=== PATIENT | female | born 1995 | race Hispanic/Latino ===

== ENCOUNTER 2017-08-15 20:52 | Emergency (ER) | payer OTHER ==
--- NOTE | 2017-08-15 23:52 | Emergency Department Report ---
ED General Adult HPI - General Chief complaint: Urogenital-Female Stated complaint: FEVER Time Seen by Provider: 08/15/17 23:51 Source: patient Mode of arrival: Ambulatory Limitations: No Limitations - Related Data Previous Rx's Medication Instructions Recorded Last Taken Type Ranitidine HCl [Zantac 300 MG TAB] 300 mg PO QPM #20 tablet 10/04/16 Unknown Rx Allergies Allergy/AdvReac Type Severity Reaction Status Date / Time No Known Allergies Allergy Verified 08/15/17 21:39 ED Review of Systems ROS: Stated complaint: FEVER Other details as noted in HPI ED Past Medical Hx - Past Medical History Previous Medical History?: No Additional medical history: Vaginal delivery 11-12-2015 - Surgical History Past Surgical History?: No - Social History Smoking Status: Never Smoker Substance Use Type: Alcohol - Medications Home Medications: Home Medications Medication Instructions Recorded Confirmed Last Taken Type Ranitidine HCl [Zantac 300 MG TAB] 300 mg PO QPM #20 tablet 10/04/16 Unknown Rx ED Physical Exam - General Limitations: No Limitations ED Course Vital Signs 08/15/17 21:39 Temperature 98.3 F Pulse Rate 82 Respiratory 18 Rate Blood Pressure 106/68 O2 Sat by Pulse 99 Oximetry Critical care attestation.: If time is entered above; I have spent that time in minutes in the direct care of this critically ill patient, excluding procedure time. ED Disposition Condition: Stable Referrals: PRIMARY CARE, [Primary Care Provider] - 3-5 Days
--- NOTE | 2017-08-15 23:58 | Emergency Department Report ---
ED Female HPI - General Chief complaint: Urogenital-Female Stated complaint: FEVER Time Seen by Provider: 08/15/17 23:51 Source: patient, RN notes reviewed Mode of arrival: Ambulatory Limitations: No Limitations - History of Present Illness Initial comments: This is a 23-year-old female, who was previously unknown to this provider. The patient presents to the ER with complaint of vaginal pain and dysuria. Patient was seen at an outpatient urgent care facility, and treated empirically for pelvic inflammatory disease with 250 mg of IM Rocephin, 1 g of azithromycin, and metronidazole. She reports that today she began to feel somewhat feverish and weak, contacted urgent care center, and she was sent to the ER for further evaluation. Her symptoms are intermittent, and have no exacerbating or relieving factors. She does endorse bilateral inguinal adenopathy. No headache, neck pain, chest pain , abdominal pain, shortness of breath. She reports having swabs and blood work done as an outpatient. MD Complaint: vaginal discharge, dysuria, possible STD -: Gradual Severity: mild Consistency: intermittent Improves with: none Worsens with: none Are you Now?: No Associated Symptoms: vaginal discharge, fever/chills, dysuria - Related Data Sexually active: Yes Previous Rx's Medication Instructions Recorded Last Taken Type Ranitidine HCl [Zantac 300 MG TAB] 300 mg PO QPM #20 tablet 10/04/16 Unknown Rx Doxycycline [Vibramycin] 100 mg PO Q12HR #20 capsule 08/16/17 Unknown Rx Valacyclovir HCl [Valtrex] 1,000 mg PO TID #21 tablet 08/16/17 Unknown Rx Allergies Allergy/AdvReac Type Severity Reaction Status Date / Time No Known Allergies Allergy Verified 08/15/17 21:39 ED Review of Systems ROS: Stated complaint: FEVER Other details as noted in HPI Constitutional: fever, malaise, weakness Eyes: denies: vision change ENT: denies: epistaxis Respiratory: denies: cough Cardiovascular: denies: chest pain Gastrointestinal: denies: abdominal pain Genitourinary: dysuria, discharge Musculoskeletal: denies: back pain Skin: denies: lesions Neurological: weakness Psychiatric: anxiety ED Past Medical Hx - Past Medical History Previous Medical History?: No Additional medical history: Vaginal delivery 11-12-2015 - Surgical History Past Surgical History?: No - Social History Smoking Status: Never Smoker Substance Use Type: Alcohol - Medications Home Medications: Home Medications Medication Instructions Recorded Confirmed Last Taken Type Ranitidine HCl [Zantac 300 MG TAB] 300 mg PO QPM #20 tablet 10/04/16 Unknown Rx Doxycycline [Vibramycin] 100 mg PO Q12HR #20 capsule 08/16/17 Unknown Rx Valacyclovir HCl [Valtrex] 1,000 mg PO TID #21 tablet 08/16/17 Unknown Rx ED Physical Exam - General Limitations: No Limitations General appearance: alert, in no apparent distress - Head Head exam: Present: atraumatic, normocephalic - Eye Eye exam: Present: normal appearance, EOMI. Absent: nystagmus - ENT ENT exam: Present: normal exam, normal orophraynx, mucous membranes moist, normal external ear exam - Neck Neck exam: Present: normal inspection, full ROM. Absent: tenderness, meningismus - Respiratory Respiratory exam: Present: normal lung sounds bilaterally. Absent: respiratory distress, wheezes, rales, rhonchi, stridor, chest wall tenderness, accessory muscle use, decreased breath sounds, prolonged expiratory - Cardiovascular Cardiovascular Exam: Present: regular rate, normal rhythm, normal heart sounds. Absent: bradycardia, tachycardia, irregular rhythm, systolic murmur, diastolic murmur, rubs, gallop - GI/Abdominal GI/Abdominal exam: Present: soft, normal bowel sounds. Absent: distended, tenderness, guarding, rebound, rigid, pulsatile mass - External exam: Absent: normal external exam (punctate vesicular lesions noted on the right-sided labia. They do not appear to be superinfected) Speculum exam: Present: cervical discharge (nonspecific cervical lesions noted) Bi-manual exam: Present: normal bi-manual exam, other (escorted by [facility] feli solano). Absent: cervical motion tendernes, adnexal tenderness, adnexal mass - Extremities Exam Extremities exam: Present: normal inspection, full ROM, normal capillary refill. Absent: pedal edema, joint swelling, calf tenderness - Back Exam Back exam: Present: normal inspection, full ROM. Absent: tenderness, CVA tenderness (R), CVA tenderness (L), muscle spasm, paraspinal tenderness, vertebral tenderness - Neurological Exam Neurological exam: Present: alert, oriented X3, normal gait, other (Extraocular movements intact. Tongue midline. No facial droop. Facial sensation intact to light touch in the V1, V2, V3 distribution bilaterally. 5 and 5 strength in 4 extremities.. Sensation is intact to light touch in 4 extremities.). Absent : motor sensory deficit - Psychiatric Psychiatric exam: Present: normal affect, normal mood - Skin Skin exam: Present: warm, dry, intact, normal color. Absent: rash ED Course Vital Signs 08/15/17 21:39 Temperature 98.3 F Pulse Rate 82 Respiratory 18 Rate Blood Pressure 106/68 O2 Sat by Pulse 99 Oximetry ED Medical Decision Making - Lab Data Vital Signs 08/15/17 21:39 Temperature 98.3 F Pulse Rate 82 Respiratory 18 Rate Blood Pressure 106/68 O2 Sat by Pulse 99 Oximetry Labs 08/15/17 Unknown Urine Color Straw Urine Turbidity Clear Urine pH 6.0 Ur Specific [place] 1.004 Urine Protein <15 mg/dl Urine Glucose (UA) Neg Urine Ketones Neg Urine Blood Sm Urine Nitrite Neg Ur Reducing Substances Not Reportable Urine Bilirubin Neg Urine Ictotest Not Reportable Urine Urobilinogen < 2.0 Ur Leukocyte Esterase Mod Urine WBC (Auto) 5.0 Urine RBC (Auto) 4.0 U Epithel Cells (Auto) 2.0 Urine Bacteria (Auto) 1+ Urine Mucus Few Urine HCG, Qual Negative - Medical Decision Making Differential diagnosis: Chlamydia, vaginitis, genital herpes Assessment and plan: 22-year-old female with irritative urinary complaints, right-sided inguinal adenopathy, no cervical motion tenderness or adnexal tenderness, no abdominal tenderness, I see no reason to obtain laboratory studies or emergent imaging at this time. Patient was covered with azithromycin at a previous facility, I would consider this an adequate coverage , I will expand her coverage to doxycycline. Also has painful vesicular lesions on the anterior genitals, concerning for herpes. She will be treated with valacyclovir. STD precautions are reviewed. Given her current history and physical, as well as her benign physical examination, I don't believe the patient requires inpatient admission at this time. Critical care attestation.: If time is entered above; I have spent that time in minutes in the direct care of this critically ill patient, excluding procedure time. ED Disposition Clinical Impression: Concern about STD in female without diagnosis Disposition: DC-01 TO HOME OR SELFCARE Is pt being admited?: No Does the pt Need Aspirin: No Condition: Stable Instructions: Pelvic Inflammatory Disease (ED) Additional Instructions: Cultures were sent today, and results will be available next 3-5 days. Please have your primary care doctor call the medical records department to obtain your culture results. Take the antibiotic therapy as directed. Take the nausea medication and pain medication as directed. I recommend outpatient testing for sexually transmitted diseases, including hepatitis, syphilis and HIV. I also recommend that you abstain from sexual activity until you have completed her antibiotic therapy, a physician states that it is safe for you to resume sexual activity, and any partners that you have been sexually active with have been tested/treated/evaluated for sexual transmitted diseases. Please follow-up with physician within 2-3 weeks. I recommend that you return to the ER right away with worsening pain, migration of pain, intractable nausea/vomiting, inability tolerate liquid feeds. Do not consume alcohol while taking the medication. Prescriptions: Doxycycline [Vibramycin] 100 mg PO Q12HR #20 capsule Valacyclovir HCl [Valtrex] 1,000 mg PO TID #21 tablet Referrals: PRIMARY [facility]EM[facility] [Primary Care Provider] - 3-5 Days [facility] [Provider Group] - 3-5 Days [facility] [Provider Group] - 3-5 Days [facility] [Provider Group] - 3-5 Days
[2017-08-16 00:49] LABS: Bacteria,Urine 1+ /HPF (Negative); Bilirubin,Urine NEG (Negative); Blood,Urine SM (Negative); Ketones,Urine NEG (Negative); Leukocyte Esterase,Urine MOD (Negative); Mucus,Urine FEW /HPF; Nitrite,Urine NEG (Negative); Protein,Urine <15 mg/dL mg/dL (Negative); Urobilinogen,Urine < 2.0 mg/dL (<2.0)
[2017-08-16 06:47] VITALS: BP 100/61
== END 2017-08-16 01:29 | disposition home or self-care (01) ==
LOC: ED 20:52
DX: N89.8 Other specified noninflammatory disorders of vagina (principal)
CPT/HCPCS: 81001; 81025; 87086; 87210; 87591; 99283